=== PATIENT | male | born 1970 | race Caucasian/White ===

== ENCOUNTER 2017-02-10 10:15 | Emergency (ER) | payer MEDICAID ==
[~2017-02-10] VITALS: Ht 180.3 cm; Wt 85.0 kg
[~2017-02-10 10:15] MED LIST: AMLO5TAB4 PO; BACL-19 PO; CLINDAMYCIN; CLON0.1T12 PO; ERGO500017 PO; HYDR25TA6 PO; IRBE300T16 PO; LACT10SO5 PO; LORA-446 PO; METO25TA35 PO; METO25TA91 PO; MULT-658 PO; OMEP20TA62 PO; PITA1TAB2; RISP2TAB35 PO; [UNRECOGNIZED DRUG - OTHER]
[2017-02-10] MEDS ORDERED: METO25TA35 PO (10:27)
[2017-02-10] MEDS ORDERED: DIAZ10TA PO (10:40)
[2017-02-10] MEDS ORDERED: TRAZ50TA18 PO (10:40)
[2017-02-10] MEDS ORDERED: HYDR50CA PO (10:40)
[2017-02-10] MEDS ORDERED: DULO30CA2 PO (10:40)
[2017-02-10] MEDS ORDERED: DULO60CA7 PO (10:40)
[2017-02-10] MEDS ORDERED: FAMOTIDINE 20 MG/2 ML ONE (10:51)
[2017-02-10] MEDS ORDERED: ONDANSETRON 2MG/ML, 2ML ONE (10:51)
[2017-02-10] MEDS ORDERED: CHLORDIAZEPOXIDE 25 MG CAPSULE PO ONE (11:00)
[2017-02-10] MEDS ORDERED: SODIUM CHLORIDE FLUSH 10ML SYR IVF ONE (11:00)
[2017-02-10] MEDS ORDERED: ONDANSETRON 2MG/ML, 2ML IVPush ONE (11:00)
[2017-02-10] MEDS ORDERED: FAMOTIDINE 20 MG/2 ML IVPush ONE (11:00)
[2017-02-10] MEDS ORDERED: MAGNESIUM SULFATE 1 GM, THIAMINE 100 MG, FOLIC ACID 1 MG, MVI ADULT 10 ML in SODIUM CHL... IV ONE (11:00)
[2017-02-10] MEDS ORDERED: SODIUM CHLORIDE 0.9% 1,000ML IVBOLUS ONE (11:00)
[2017-02-10 11:21] LABS: ASPARTATE AMINO TRANSFERASE 34 U/L (15-37); BLOOD UREA NITROGEN 11 mg/dL (7-18)
[2017-02-10] MEDS ORDERED: HYDROcodone/APAP 5/325 TABLET ONE (12:36)
[2017-02-10] MEDS ORDERED: POTASSIUM CHLORIDE 20 MEQ TAB.ER.PRT PO ONE (13:00)
[2017-02-10] MEDS ORDERED: HYDROcodone/APAP 5/325 TABLET PO ONE (13:00)
[2017-02-10] MEDS ORDERED: POTASSIUM CHLORIDE 20 MEQ TAB.ER.PRT ONE (13:02)
[2017-02-10 15:16] VITALS: BP 152/103
== END 2017-02-10 15:21 | disposition home or self-care (01) ==
LOC: ED 12:13
DX: F10.239 Alcohol dependence with withdrawal, unspecified (principal)
CPT/HCPCS: 36415; 80053; 85025; 93005; 96361; 96365; 96366; 96375; 99285; J2405; J3411; J3475; J7030; S0028

== ENCOUNTER 2017-04-06 02:47 | Inpatient (IN) | payer MEDICAID ==
[~2017-04-06] VITALS: Ht 180.3 cm; Wt 91.8 kg
[~2017-04-06 02:47] MED LIST changes: +DIAZ10TA PO; +DULO30CA2 PO; +DULO60CA7 PO; +HYDR50CA PO; +TRAZ50TA18 PO
[2017-04-06] MEDS ORDERED: THIAMINE 100 MG/ML, 2ML ONE (02:51)
[2017-04-06] MEDS ORDERED: LORazepam 2 MG/ML, 1ML ONE ×4 (02:51→08:32)
[2017-04-06] MEDS ORDERED: SERT25TA PO (02:54)
[2017-04-06] MEDS ORDERED: THIAMINE 100 MG in SODIUM CHLORIDE 0.9% 50 ML IVPB ONE (03:00)
[2017-04-06] MEDS ORDERED: SODIUM CHLORIDE 0.9% 1,000ML IVBOLUS ONE ×2 (03:00→04:00)
[2017-04-06] MEDS ORDERED: LORazepam 2 MG/ML, 1ML IVPush ONE ×2 (03:00→04:00)
[2017-04-06 03:19] LABS: ASPARTATE AMINO TRANSFERASE 93 U/L (15-37); BLOOD UREA NITROGEN 34 mg/dL (7-18)
[2017-04-06] MEDS ORDERED: POTASSIUM CHLORIDE 20 MEQ TAB.ER.PRT ONE (03:44)
[2017-04-06] MEDS ORDERED: KETOROLAC 30 MG/1 ML ONE (03:44)
[2017-04-06] MEDS ORDERED: POTASSIUM CHLORIDE 20 MEQ TAB.ER.PRT PO ONE (04:00)
[2017-04-06] MEDS ORDERED: KETOROLAC 30 MG/1 ML IVPush ONE (04:00)
[2017-04-06] MEDS ORDERED: POTASSIUM CHLORIDE 20 MEQ in SODIUM CHLORIDE 0.9% 1,000 ML IV ONE (04:29)
[2017-04-06] MEDS ORDERED: ONDANSETRON 2MG/ML, 2ML IVPush PRN (04:30)
[2017-04-06] MEDS ORDERED: LORazepam 2 MG/ML, 1ML IV PRN ×2 (06:00)
[2017-04-06] MEDS ORDERED: PROMETHAZINE 25 MG/ML, 1ML IM PRN (06:00)
[2017-04-06] MEDS ORDERED: CHLORDIAZEPOXIDE 25 MG CAPSULE PO PRN (06:00)
[2017-04-06] MEDS: LORazepam 2 MG/ML, 1ML IV PRN ×4 (06:22→21:40)
[2017-04-06] MEDS: HEPARIN 5,000 UNITS/ML, 1ML SQ SCH ×3 (07:30→21:49)
[2017-04-06] MEDS ORDERED: MAGNESIUM SULFATE PMX 2GM/50ML 50 ML IV ONE (07:30)
[2017-04-06] MEDS: THIAMINE 100 MG, MVI ADULT 10 ML, FOLIC ACID 1 MG in D5%-0.9% NACL 1,000 ML IV SCH (07:36)
[2017-04-06] MEDS: METOPROLOL TARTRATE 25 MG TABLET PO SCH (09:00)
[2017-04-06] MEDS: SERTRALINE 50MG TABLET PO SCH (09:00)
[2017-04-06 10:42] VITALS: BP 126/76
[2017-04-06] MEDS ORDERED: THIAMINE 200 MG in SODIUM CHLORIDE 0.9% 50 ML IV ONE (12:00)
[2017-04-06] MEDS: SODIUM CHLORIDE 0.9% 1,000 ML IV SCH ×2 (13:37→15:50)
[2017-04-06 14:30] VITALS: BP 140/89
[2017-04-06 18:52] VITALS: BP 137/89
[2017-04-07] MEDS: SODIUM CHLORIDE 0.9% 1,000 ML IV SCH (01:43)
[2017-04-07 01:50] VITALS: BP 135/82
[2017-04-07 05:54] LABS: BLOOD UREA NITROGEN 15 mg/dL (7-18)
[2017-04-07 05:59] LABS: ASPARTATE AMINO TRANSFERASE 77 U/L (15-37)
[2017-04-07] MEDS: HEPARIN 5,000 UNITS/ML, 1ML SQ SCH ×3 (06:04→21:42)
[2017-04-07] MEDS ORDERED: POTASSIUM CHLORIDE 20 MEQ TAB.ER.PRT PO ONE (08:00)
[2017-04-07 08:51] VITALS: BP 154/97
[2017-04-07] MEDS: SERTRALINE 50MG TABLET PO SCH (09:01)
[2017-04-07] MEDS: METOPROLOL TARTRATE 25 MG TABLET PO SCH (09:01)
[2017-04-07] MEDS: LORazepam 2 MG/ML, 1ML IV PRN ×2 (09:02→18:23)
[2017-04-07 13:37] VITALS: BP 144/87
[2017-04-07 19:20] VITALS: BP 143/92
[2017-04-08 02:12] VITALS: BP 143/97
[2017-04-08] MEDS: ONDANSETRON 2MG/ML, 2ML IVPush PRN (02:41)
[2017-04-08] MEDS: LORazepam 2 MG/ML, 1ML IV PRN ×5 (02:41→21:42)
[2017-04-08 05:02] LABS: ASPARTATE AMINO TRANSFERASE 59 U/L (15-37); BLOOD UREA NITROGEN 14 mg/dL (7-18)
[2017-04-08] MEDS: THIAMINE 100 MG, MVI ADULT 10 ML, FOLIC ACID 1 MG in D5%-0.9% NACL 1,000 ML IV SCH (06:23)
[2017-04-08] MEDS: HEPARIN 5,000 UNITS/ML, 1ML SQ SCH ×3 (06:23→23:17)
[2017-04-08 07:11] VITALS: BP 136/91
[2017-04-08] MEDS: SERTRALINE 50MG TABLET PO SCH (08:01)
[2017-04-08] MEDS: METOPROLOL TARTRATE 25 MG TABLET PO SCH (08:01)
[2017-04-08] MEDS ORDERED: POTASSIUM CHLORIDE 20 MEQ TAB.ER.PRT PO ONE (10:30)
[2017-04-08] MEDS ORDERED: CHLORDIAZEPOXIDE 25 MG CAPSULE PO PRN (10:30)
[2017-04-08] MEDS: CHLORDIAZEPOXIDE 5 MG CAPSULE PO PRN (12:39)
[2017-04-08 15:36] VITALS: BP 126/79
[2017-04-08 19:38] VITALS: BP 151/88
[2017-04-08] MEDS ORDERED: KETOROLAC 30 MG/1 ML IVPush ONE (23:30)
[2017-04-09] VITALS (12 sets, daily range): BP systolic 113–157; BP diastolic 79–97
[2017-04-09 05:24] LABS: BLOOD UREA NITROGEN 13 mg/dL (7-18)
[2017-04-09] MEDS: THIAMINE 100 MG, MVI ADULT 10 ML, FOLIC ACID 1 MG in D5%-0.9% NACL 1,000 ML IV SCH (06:12)
[2017-04-09] MEDS: LORazepam 2 MG/ML, 1ML IV PRN ×4 (06:12→22:24)
[2017-04-09] MEDS: ONDANSETRON 2MG/ML, 2ML IVPush PRN (06:39)
[2017-04-09] MEDS: HEPARIN 5,000 UNITS/ML, 1ML SQ SCH ×2 (08:17→16:28)
[2017-04-09] MEDS: METOPROLOL TARTRATE 25 MG TABLET PO SCH (08:17)
[2017-04-09] MEDS: SERTRALINE 50MG TABLET PO SCH (08:17)
[2017-04-09] MEDS: KETOROLAC 30 MG/1 ML IVPush PRN (16:29)
[2017-04-09] MEDS: CHLORDIAZEPOXIDE 5 MG CAPSULE PO PRN (20:50)
[2017-04-10] VITALS (9 sets, daily range): BP systolic 127–165; BP diastolic 86–113
[2017-04-10] MEDS: HEPARIN 5,000 UNITS/ML, 1ML SQ SCH ×3 (01:13→17:22)
[2017-04-10] MEDS: LORazepam 2 MG/ML, 1ML IV PRN ×4 (05:15→20:33)
[2017-04-10] MEDS: THIAMINE 100 MG, MVI ADULT 10 ML, FOLIC ACID 1 MG in D5%-0.9% NACL 1,000 ML IV SCH (05:19)
[2017-04-10] MEDS: SERTRALINE 50MG TABLET PO SCH (09:07)
[2017-04-10] MEDS: METOPROLOL TARTRATE 25 MG TABLET PO SCH (09:07)
[2017-04-10] MEDS: KETOROLAC 30 MG/1 ML IVPush PRN (20:58)
[2017-04-11 01:26] VITALS: BP_SYST 150; BP_SYST 159; BP_DIAS 102; BP_DIAS 105
[2017-04-11] MEDS: HEPARIN 5,000 UNITS/ML, 1ML SQ SCH ×3 (01:32→18:46)
[2017-04-11] MEDS: LORazepam 2 MG/ML, 1ML IV PRN ×6 (01:32→22:10)
[2017-04-11 08:49] VITALS: BP 128/88
[2017-04-11] MEDS: METOPROLOL TARTRATE 25 MG TABLET PO SCH (10:13)
[2017-04-11] MEDS: SERTRALINE 50MG TABLET PO SCH (10:14)
[2017-04-11] MEDS: KETOROLAC 30 MG/1 ML IVPush PRN ×2 (10:18→22:01)
[2017-04-11 14:10] VITALS: BP 127/95
[2017-04-11 19:49] VITALS: BP 134/88
[2017-04-12] MEDS: HEPARIN 5,000 UNITS/ML, 1ML SQ SCH ×3 (01:31→18:37)
[2017-04-12 01:38] VITALS: BP 128/86
[2017-04-12] MEDS: LORazepam 2 MG/ML, 1ML IV PRN ×4 (02:54→20:47)
[2017-04-12 06:59] VITALS: BP 121/85
[2017-04-12] MEDS ORDERED: MAGN400T26 PO (07:39)
[2017-04-12] MEDS ORDERED: METO25TA35 PO (07:39)
[2017-04-12] MEDS ORDERED: FOLI-17 PO (07:39)
[2017-04-12] MEDS ORDERED: THIA100T10 PO (07:39)
[2017-04-12] MEDS ORDERED: MULT-412 PO (07:39)
[2017-04-12 10:15] VITALS: BP 137/93
[2017-04-12] MEDS: KETOROLAC 30 MG/1 ML IVPush PRN (10:19)
[2017-04-12] MEDS: OMEPRAZOLE 20 MG CAPSULE.DR PO SCH (10:20)
[2017-04-12] MEDS: SERTRALINE 50MG TABLET PO SCH (10:20)
[2017-04-12] MEDS: METOPROLOL TARTRATE 25 MG TABLET PO SCH ×2 (10:20→20:42)
[2017-04-12 12:29] VITALS: BP 131/90
[2017-04-12] MEDS: HYDROcodone/APAP 5/325 TABLET PO PRN ×2 (15:06→20:43)
[2017-04-12 19:30] VITALS: BP 151/90
[2017-04-12] MEDS ORDERED: LISINOPRIL 10 MG TABLET PO SCH (21:00)
[2017-04-13 02:11] VITALS: BP 93/64
[2017-04-13] MEDS: LORazepam 2 MG/ML, 1ML IV PRN ×4 (03:17→20:39)
[2017-04-13] MEDS: HEPARIN 5,000 UNITS/ML, 1ML SQ SCH ×3 (03:32→18:12)
[2017-04-13] MEDS: HYDROcodone/APAP 5/325 TABLET PO PRN ×4 (03:32→20:32)
[2017-04-13 07:42] VITALS: BP 100/62
[2017-04-13] MEDS: METOPROLOL TARTRATE 25 MG TABLET PO SCH ×2 (08:40→20:32)
[2017-04-13] MEDS: OMEPRAZOLE 20 MG CAPSULE.DR PO SCH (08:42)
[2017-04-13] MEDS: SERTRALINE 50MG TABLET PO SCH (08:42)
[2017-04-13] MEDS: LISINOPRIL 5 MG TABLET PO SCH ×2 (08:46→21:00)
[2017-04-13 13:28] VITALS: BP 102/69
[2017-04-13 17:39] VITALS: BP 121/86
[2017-04-13 20:10] VITALS: BP 130/84
[2017-04-14] MEDS: HEPARIN 5,000 UNITS/ML, 1ML SQ SCH ×2 (02:56→10:00)
[2017-04-14 02:57] VITALS: BP 95/56
[2017-04-14] MEDS: HYDROcodone/APAP 5/325 TABLET PO PRN ×2 (03:00→08:51)
[2017-04-14] MEDS: LORazepam 2 MG/ML, 1ML IV PRN (03:09)
[2017-04-14] MEDS: METOPROLOL TARTRATE 25 MG TABLET PO SCH (08:46)
[2017-04-14] MEDS: OMEPRAZOLE 20 MG CAPSULE.DR PO SCH (08:46)
[2017-04-14 08:51] VITALS: BP 116/77
[2017-04-14] MEDS: SERTRALINE 50MG TABLET PO SCH (08:51)
[2017-04-14] MEDS: LISINOPRIL 5 MG TABLET PO SCH (09:00)
[2017-04-14] MEDS ORDERED: HYDR-3240 PO (11:23)
[2017-04-14] MEDS ORDERED: OMEP-110 PO (11:23)
== END 2017-04-14 14:50 | disposition home or self-care (01) | DRG 896 ==
LOC: ED 03:17 → EDIP 04:29 → 4WST 11:06
PROVIDERS: ADMIT Internal Medicine; ATTEND Internal Medicine
DX: F10.231 Alcohol dependence with withdrawal delirium (principal); N17.0 Acute kidney failure with tubular necrosis; E87.1 Hypo-osmolality and hyponatremia; F23 Brief psychotic disorder; E87.6 Hypokalemia; I10 Essential (primary) hypertension; K21.9 Gastro-esophageal reflux disease without esophagitis; F31.9 Bipolar disorder, unspecified; Z81.1 Family history of alcohol abuse and dependence
CPT/HCPCS: 36415; 80048; 80053; 80307; 83735; 84100; 85025; 96365; 96375; 96376; J1644; J1885; J2405; J2550; J3411; J3480; J7042; J2060; J3475; J7030

== ENCOUNTER 2017-06-28 12:57 | Inpatient (IN) | payer MEDICAID ==
[~2017-06-28] VITALS: Ht 180.3 cm; Wt 96.7 kg
[~2017-06-28 12:57] MED LIST changes: +FOLI-17 PO; +HYDR-3240 PO; +MAGN400T26 PO; +MULT-412 PO; +OMEP-110 PO; +SERT25TA PO; +THIA100T10 PO
[2017-06-28] MEDS ORDERED: LORazepam 2 MG/ML, 1ML ONE (13:02)
[2017-06-28] MEDS ORDERED: LORazepam 2 MG/ML, 1ML IVPush ONE ×2 (13:30→21:00)
[2017-06-28] MEDS ORDERED: GABAPENTIN 300 MG CAPSULE PO ONE (13:30)
[2017-06-28] MEDS ORDERED: THIAMINE 100 MG in SODIUM CHLORIDE 0.9% 50 ML IVPB ONE (13:30)
[2017-06-28] MEDS ORDERED: SODIUM CHLORIDE FLUSH 10ML SYR IVF ONE (13:30)
[2017-06-28] MEDS ORDERED: SODIUM CHLORIDE 0.9% 1,000ML IVBOLUS ONE (13:30)
[2017-06-28 13:42] LABS: HEMATOCRIT 41.3 % (39.2-51.8); HEMOGLOBIN 14.1 g/dL (13.7-18.0); WHITE BLOOD COUNT 9.2 x10^3/uL (3.4-10)
[2017-06-28 13:50] LABS: ASPARTATE AMINO TRANSFERASE 68 U/L (15-37); BLOOD UREA NITROGEN 26 mg/dL (7-18)
[2017-06-28] MEDS ORDERED: MAGNESIUM SULFATE PMX 4GM/100M 100 ML IV ONE ×2 (14:00→15:30)
[2017-06-28] MEDS ORDERED: POTASSIUM CHLORIDE 20 MEQ TAB.ER.PRT PO ONE ×2 (14:00→19:30)
[2017-06-28] MEDS ORDERED: POTASSIUM CHLORIDE 20 MEQ TAB.ER.PRT ONE (14:24)
[2017-06-28] MEDS ORDERED: POTASSIUM CHLORIDE 20 MEQ TAB.ER.PRT PO SCH (15:30)
[2017-06-28] MEDS ORDERED: morphine SULFATE 10 MG/ML, 1ML IVPush PRN (15:30)
[2017-06-28] MEDS ORDERED: hydrALAzine 20 MG/ML, 1ML IVPush PRN (15:30)
[2017-06-28] MEDS ORDERED: ACETAMINOPHEN 325 MG TABLET PO PRN (15:30)
[2017-06-28] MEDS ORDERED: LORazepam 2 MG/ML, 1ML IVPush PRN (15:30)
[2017-06-28] MEDS: NS + 40MEQ KCL 1,000 ML IV SCH ×2 (15:46→20:08)
[2017-06-28] MEDS: SODIUM CHLORIDE 0.9% 1,000 ML IV SCH ×2 (15:47→22:12)
[2017-06-28] MEDS ORDERED: TRAZODONE 50MG TABLET PO PRN (16:00)
[2017-06-28 17:02] VITALS: BP 150/103
[2017-06-28] MEDS: OXYcodone IR 5MG TABLET PO PRN ×2 (17:48→20:10)
[2017-06-28 18:44] VITALS: BP 145/90
[2017-06-28] MEDS: METOPROLOL TARTRATE 25 MG TABLET PO SCH (20:10)
[2017-06-28] MEDS: MAGNESIUM OXIDE 400 MG TABLET PO SCH (20:10)
[2017-06-29 00:19] VITALS: BP 136/94
[2017-06-29] MEDS: LORazepam 2 MG/ML, 1ML IVPush PRN ×6 (00:20→23:55)
[2017-06-29 04:52] VITALS: BP 124/81
[2017-06-29] MEDS: SODIUM CHLORIDE 0.9% 1,000 ML IV SCH ×3 (04:52→20:27)
[2017-06-29 05:27] LABS: HEMATOCRIT 37.6 % (39.2-51.8); HEMOGLOBIN 12.7 g/dL (13.7-18.0)
[2017-06-29 05:28] LABS: BLOOD UREA NITROGEN 20 mg/dL (7-18)
[2017-06-29 05:33] LABS: ASPARTATE AMINO TRANSFERASE 58 U/L (15-37)
[2017-06-29] MEDS: PANTOPROZOLE 40MG TABLET PO SCH (07:58)
[2017-06-29] MEDS: MAGNESIUM OXIDE 400 MG TABLET PO SCH ×2 (08:00→20:41)
[2017-06-29 08:07] VITALS: BP 130/90
[2017-06-29] MEDS: OXYcodone IR 5MG TABLET PO PRN ×3 (08:50→20:44)
[2017-06-29] MEDS: MULTIVITAMIN 1 TABLET PO SCH (08:50)
[2017-06-29] MEDS: THIAMINE 100MG TABLET PO SCH (08:51)
[2017-06-29] MEDS: METOPROLOL TARTRATE 25 MG TABLET PO SCH ×2 (08:51→20:44)
[2017-06-29] MEDS: SERTRALINE 50MG TABLET PO SCH (08:52)
[2017-06-29] MEDS: FOLIC ACID 1 MG TABLET PO SCH (08:52)
[2017-06-29] MEDS: OMEPRAZOLE 20 MG CAPSULE.DR PO SCH (08:52)
[2017-06-29 14:15] VITALS: BP 130/87
[2017-06-29 18:35] VITALS: BP 150/102
[2017-06-30] VITALS (7 sets, daily range): BP systolic 148–163; BP diastolic 90–116
[2017-06-30] MEDS: OXYcodone IR 5MG TABLET PO PRN ×5 (02:06→21:25)
[2017-06-30] MEDS: SODIUM CHLORIDE 0.9% 1,000 ML IV SCH ×4 (02:40→22:38)
[2017-06-30] MEDS: LORazepam 2 MG/ML, 1ML IVPush PRN ×5 (02:40→20:05)
[2017-06-30] MEDS: ONDANSETRON 2MG/ML, 2ML IVPush PRN (06:47)
[2017-06-30] MEDS: THIAMINE 100MG TABLET PO SCH (08:30)
[2017-06-30] MEDS: OMEPRAZOLE 20 MG CAPSULE.DR PO SCH (08:30)
[2017-06-30] MEDS: FOLIC ACID 1 MG TABLET PO SCH (08:30)
[2017-06-30] MEDS: MULTIVITAMIN 1 TABLET PO SCH (08:30)
[2017-06-30] MEDS: PANTOPROZOLE 40MG TABLET PO SCH (08:30)
[2017-06-30] MEDS: SERTRALINE 50MG TABLET PO SCH (08:30)
[2017-06-30] MEDS: MAGNESIUM OXIDE 400 MG TABLET PO SCH (09:00)
[2017-06-30 09:42] LABS: BLOOD UREA NITROGEN 13 mg/dL (7-18)
[2017-06-30] MEDS: METOPROLOL TARTRATE 50 MG TABLET PO SCH ×2 (10:12→21:17)
[2017-06-30] MEDS: HALOPERIDOL 5 MG/ML IM PRN ×2 (17:06→22:34)
[2017-07-01 00:52] VITALS: BP 144/92
[2017-07-01] MEDS: LORazepam 2 MG/ML, 1ML IVPush PRN ×3 (00:53→08:18)
[2017-07-01] MEDS: SODIUM CHLORIDE 0.9% 1,000 ML IV SCH ×3 (04:30→18:02)
[2017-07-01 05:49] LABS: BLOOD UREA NITROGEN 11 mg/dL (7-18)
[2017-07-01] MEDS: OMEPRAZOLE 20 MG CAPSULE.DR PO SCH (08:18)
[2017-07-01] MEDS: THIAMINE 100MG TABLET PO SCH (08:18)
[2017-07-01] MEDS: METOPROLOL TARTRATE 50 MG TABLET PO SCH ×2 (08:18→20:09)
[2017-07-01] MEDS: MULTIVITAMIN 1 TABLET PO SCH (08:18)
[2017-07-01] MEDS: PANTOPROZOLE 40MG TABLET PO SCH (08:18)
[2017-07-01] MEDS: SERTRALINE 50MG TABLET PO SCH (08:18)
[2017-07-01 08:23] VITALS: BP 135/90
[2017-07-01] MEDS: FOLIC ACID 1 MG TABLET PO SCH (09:00)
[2017-07-01] MEDS: OXYcodone IR 5MG TABLET PO PRN ×2 (11:19→18:02)
[2017-07-01] MEDS ORDERED: OLANZAPINE 5 MG TABLET PO SCH (12:30)
[2017-07-01] MEDS: LORazepam 1MG TABLET PO PRN ×2 (14:27→23:16)
[2017-07-01] MEDS ORDERED: OLANZAPINE 5 MG TABLET PO ONE (16:00)
[2017-07-01 16:45] VITALS: BP 143/99
[2017-07-01] MEDS ORDERED: hydrALAzine 20 MG/ML, 1ML IVPush PRN (19:00)
[2017-07-01 20:03] VITALS: BP 159/96
[2017-07-01] MEDS: ACETAMINOPHEN 325 MG TABLET PO PRN (20:09)
[2017-07-02 03:00] VITALS: BP 146/94
[2017-07-02] MEDS: OXYcodone IR 5MG TABLET PO PRN ×4 (03:58→23:47)
[2017-07-02 08:00] VITALS: BP 132/82
[2017-07-02] MEDS: OLANZAPINE 2.5 MG TABLET PO SCH (08:27)
[2017-07-02] MEDS: MULTIVITAMIN 1 TABLET PO SCH (08:28)
[2017-07-02] MEDS: PANTOPROZOLE 40MG TABLET PO SCH (08:28)
[2017-07-02] MEDS: METOPROLOL TARTRATE 50 MG TABLET PO SCH (08:28)
[2017-07-02] MEDS: THIAMINE 100MG TABLET PO SCH (08:28)
[2017-07-02] MEDS: OMEPRAZOLE 20 MG CAPSULE.DR PO SCH (08:28)
[2017-07-02] MEDS: FOLIC ACID 1 MG TABLET PO SCH (08:28)
[2017-07-02] MEDS: ACETAMINOPHEN 325 MG TABLET PO PRN (08:30)
[2017-07-02] MEDS ORDERED: FLUOXETINE 20 MG CAPSULE PO SCH ×2 (09:00→20:00)
[2017-07-02] MEDS: FLUOXETINE 10 MG CAP PO SCH (09:57)
[2017-07-02 15:00] VITALS: BP 138/95
[2017-07-02 19:53] VITALS: BP 133/87
[2017-07-02] MEDS ORDERED: OLANZAPINE 2.5 MG TABLET PO SCH (20:00)
[2017-07-02] MEDS: METOPROLOL TARTRATE 100 MG TABLET PO SCH (20:04)
[2017-07-03 04:57] VITALS: BP 128/82
[2017-07-03] MEDS: LORazepam 1MG TABLET PO PRN ×2 (05:05→16:08)
[2017-07-03] MEDS: OXYcodone IR 5MG TABLET PO PRN ×4 (05:07→18:43)
[2017-07-03 08:09] VITALS: BP 152/104
[2017-07-03] MEDS: OLANZAPINE 2.5 MG TABLET PO SCH (08:31)
[2017-07-03] MEDS: OMEPRAZOLE 20 MG CAPSULE.DR PO SCH (08:32)
[2017-07-03] MEDS: PANTOPROZOLE 40MG TABLET PO SCH (08:32)
[2017-07-03] MEDS: FOLIC ACID 1 MG TABLET PO SCH (08:32)
[2017-07-03] MEDS: METOPROLOL TARTRATE 100 MG TABLET PO SCH ×2 (08:32→21:36)
[2017-07-03] MEDS: MULTIVITAMIN 1 TABLET PO SCH (08:32)
[2017-07-03] MEDS: THIAMINE 100MG TABLET PO SCH (08:32)
[2017-07-03] MEDS: FLUOXETINE 10 MG CAP PO SCH (08:33)
[2017-07-03] MEDS ORDERED: LISINOPRIL 20 MG TABLET PO SCH (10:00)
[2017-07-03 12:44] VITALS: BP 123/87
[2017-07-03] MEDS: OLANZAPINE 5 MG TABLET PO SCH ×2 (13:01→21:35)
[2017-07-03] MEDS: HALOPERIDOL 5 MG/ML IM PRN (18:43)
[2017-07-03] MEDS ORDERED: LORazepam 1MG TABLET PO ONE (19:00)
[2017-07-03 20:22] VITALS: BP 138/88
[2017-07-04 05:00] VITALS: BP 112/69
[2017-07-04] MEDS: OXYcodone IR 5MG TABLET PO PRN ×4 (05:12→20:59)
[2017-07-04] MEDS: PANTOPROZOLE 40MG TABLET PO SCH (07:46)
[2017-07-04] MEDS: OMEPRAZOLE 20 MG CAPSULE.DR PO SCH (07:46)
[2017-07-04] MEDS: THIAMINE 100MG TABLET PO SCH (08:22)
[2017-07-04] MEDS: FLUOXETINE 10 MG CAP PO SCH (08:22)
[2017-07-04] MEDS: FOLIC ACID 1 MG TABLET PO SCH (08:22)
[2017-07-04] MEDS: OLANZAPINE 5 MG TABLET PO SCH ×2 (08:22→20:59)
[2017-07-04] MEDS: LORazepam 1MG TABLET PO PRN ×3 (08:22→20:59)
[2017-07-04] MEDS: MULTIVITAMIN 1 TABLET PO SCH (08:22)
[2017-07-04] MEDS: METOPROLOL TARTRATE 100 MG TABLET PO SCH ×2 (08:25→20:58)
[2017-07-04 08:49] VITALS: BP 90/54
[2017-07-04] MEDS: ACETAMINOPHEN 325 MG TABLET PO PRN (12:06)
[2017-07-04 13:14] VITALS: BP 126/78
[2017-07-04] MEDS ORDERED: OLANZAPINE 5 MG TABLET PO PRN (18:00)
[2017-07-04] MEDS ORDERED: OLANZAPINE 10 MG INJ IM PRN (18:30)
[2017-07-04 18:58] VITALS: BP 109/71
[2017-07-05 01:48] VITALS: BP 95/60
[2017-07-05] MEDS: LORazepam 1MG TABLET PO PRN ×4 (01:52→23:15)
[2017-07-05] MEDS: OXYcodone IR 5MG TABLET PO PRN ×5 (01:52→23:15)
[2017-07-05] MEDS: OMEPRAZOLE 20 MG CAPSULE.DR PO SCH (07:30)
[2017-07-05] MEDS: PANTOPROZOLE 40MG TABLET PO SCH (07:50)
[2017-07-05 09:00] VITALS: BP 103/56
[2017-07-05] MEDS: MULTIVITAMIN 1 TABLET PO SCH (09:44)
[2017-07-05] MEDS: THIAMINE 100MG TABLET PO SCH (09:44)
[2017-07-05] MEDS: FOLIC ACID 1 MG TABLET PO SCH (09:44)
[2017-07-05] MEDS: OLANZAPINE 5 MG TABLET PO SCH (09:44)
[2017-07-05] MEDS: METOPROLOL TARTRATE 100 MG TABLET PO SCH ×2 (09:45→23:23)
[2017-07-05 13:00] VITALS: BP 95/65
[2017-07-05] MEDS: OXCARBAZEPINE 150 MG TABLET PO SCH ×2 (13:19→23:04)
[2017-07-05 19:48] VITALS: BP 100/66
[2017-07-05] MEDS ORDERED: OLANZAPINE 10 MG TABLET PO SCH (21:00)
[2017-07-05] MEDS: ACETAMINOPHEN 325 MG TABLET PO PRN (23:15)
[2017-07-05 23:22] VITALS: BP 132/87
[2017-07-06 00:08] VITALS: BP 124/81
[2017-07-06] MEDS: OMEPRAZOLE 20 MG CAPSULE.DR PO SCH (07:30)
[2017-07-06 07:40] VITALS: BP 104/72
[2017-07-06] MEDS: METOPROLOL TARTRATE 100 MG TABLET PO SCH (09:00)
[2017-07-06] MEDS: THIAMINE 100MG TABLET PO SCH (10:18)
[2017-07-06] MEDS: FOLIC ACID 1 MG TABLET PO SCH (10:18)
[2017-07-06] MEDS: MULTIVITAMIN 1 TABLET PO SCH (10:18)
[2017-07-06] MEDS: OXCARBAZEPINE 150 MG TABLET PO SCH ×2 (10:18→21:39)
[2017-07-06] MEDS: PANTOPROZOLE 40MG TABLET PO SCH (10:18)
[2017-07-06] MEDS: OXYcodone IR 5MG TABLET PO PRN ×3 (10:27→21:40)
[2017-07-06 12:50] VITALS: BP 107/71
[2017-07-06] MEDS ORDERED: RISPERIDONE 1 MG TABLET PO PRN (13:30)
[2017-07-06] MEDS: LORazepam 1MG TABLET PO PRN (16:44)
[2017-07-06] MEDS: ACETAMINOPHEN 325 MG TABLET PO PRN (18:34)
[2017-07-06 19:56] VITALS: BP 128/76
[2017-07-06] MEDS: METOPROLOL TARTRATE 50 MG TABLET PO SCH (21:39)
[2017-07-06] MEDS: RISPERIDONE 2 MG TABLET PO SCH (21:39)
[2017-07-07 01:02] VITALS: BP 111/75
[2017-07-07] MEDS: OXYcodone IR 5MG TABLET PO PRN ×4 (04:13→22:49)
[2017-07-07] MEDS: LORazepam 1MG TABLET PO PRN ×3 (04:14→21:45)
[2017-07-07 07:26] VITALS: BP 138/94
[2017-07-07] MEDS: MULTIVITAMIN 1 TABLET PO SCH (08:26)
[2017-07-07] MEDS: THIAMINE 100MG TABLET PO SCH (08:26)
[2017-07-07] MEDS: METOPROLOL TARTRATE 50 MG TABLET PO SCH ×2 (08:27→21:41)
[2017-07-07] MEDS: OMEPRAZOLE 20 MG CAPSULE.DR PO SCH (08:28)
[2017-07-07] MEDS: FOLIC ACID 1 MG TABLET PO SCH (08:28)
[2017-07-07] MEDS: OXCARBAZEPINE 150 MG TABLET PO SCH ×2 (08:30→21:42)
[2017-07-07 13:32] VITALS: BP 101/67
[2017-07-07] MEDS: ACETAMINOPHEN 325 MG TABLET PO PRN ×2 (16:57→21:45)
[2017-07-07 20:17] VITALS: BP 121/69
[2017-07-07] MEDS: ONDANSETRON 2MG/ML, 2ML IVPush PRN (21:34)
[2017-07-07] MEDS: RISPERIDONE 2 MG TABLET PO SCH (21:42)
[2017-07-07 23:30] LABS: OCCBLD OBC PASS
[2017-07-08] MEDS ORDERED: LOPERAMIDE 2 MG CAPSULE PO PRN (00:30)
[2017-07-08 02:54] VITALS: BP 102/64
[2017-07-08] MEDS: LORazepam 1MG TABLET PO PRN ×3 (02:59→20:59)
[2017-07-08] MEDS: OXYcodone IR 5MG TABLET PO PRN ×5 (02:59→20:58)
[2017-07-08 05:55] LABS: HEMATOCRIT 35.5 % (39.2-51.8); WHITE BLOOD COUNT 4.5 x10^3/uL (3.4-10)
[2017-07-08 06:17] LABS: ASPARTATE AMINO TRANSFERASE 79 U/L (15-37); BLOOD UREA NITROGEN 17 mg/dL (7-18)
[2017-07-08 06:37] LABS: DIFF TOTAL CELLS COUNTED 100 CELL DIFF
[2017-07-08 06:39] LABS: VERIFY COUNTS? YES
[2017-07-08 06:40] LABS: LARGE PLATELETS 1+
[2017-07-08 07:44] VITALS: BP 101/62
[2017-07-08] MEDS: FOLIC ACID 1 MG TABLET PO SCH (08:31)
[2017-07-08] MEDS: OMEPRAZOLE 20 MG CAPSULE.DR PO SCH (08:31)
[2017-07-08] MEDS: OXCARBAZEPINE 150 MG TABLET PO SCH ×2 (08:32→20:58)
[2017-07-08] MEDS: THIAMINE 100MG TABLET PO SCH (08:32)
[2017-07-08] MEDS: MULTIVITAMIN 1 TABLET PO SCH (08:32)
[2017-07-08] MEDS: METOPROLOL TARTRATE 50 MG TABLET PO SCH ×2 (08:32→20:59)
[2017-07-08] MEDS: ACETAMINOPHEN 325 MG TABLET PO PRN (08:33)
[2017-07-08 13:26] VITALS: BP 112/69
[2017-07-08] MEDS ORDERED: SODIUM CHLORIDE 0.9% 1,000 ML IV SCH (16:00)
[2017-07-08] MEDS ORDERED: SODIUM CHLORIDE 0.9% 1,000ML IVBOLUS ONE (16:00)
[2017-07-08 19:21] VITALS: BP 117/77
[2017-07-08] MEDS ORDERED: TRAZODONE 50MG TABLET PO PRN (19:30)
[2017-07-08] MEDS ORDERED: hydrALAzine 20 MG/ML, 1ML IVPush PRN (19:30)
[2017-07-08] MEDS ORDERED: ONDANSETRON 2MG/ML, 2ML IVPush PRN (19:30)
[2017-07-08] MEDS ORDERED: RISPERIDONE 1 MG TABLET PO PRN (19:30)
[2017-07-08] MEDS: RISPERIDONE 2 MG TABLET PO SCH (20:58)
[2017-07-09 02:43] VITALS: BP 103/68
[2017-07-09] MEDS: LORazepam 1MG TABLET PO PRN ×5 (05:19→23:22)
[2017-07-09] MEDS: OXYcodone IR 5MG TABLET PO PRN ×2 (05:19→10:30)
[2017-07-09 05:33] LABS: HEMOGLOBIN 11.6 g/dL (13.7-18.0)
[2017-07-09 05:39] LABS: BLOOD UREA NITROGEN 13 mg/dL (7-18)
[2017-07-09 05:52] LABS: DIFF TOTAL CELLS COUNTED 100 CELL DIFF
[2017-07-09 06:03] LABS: LARGE PLATELETS 1+; VERIFY COUNTS? YES
[2017-07-09 07:59] VITALS: BP 106/69
[2017-07-09] MEDS: METOPROLOL TARTRATE 50 MG TABLET PO SCH ×2 (08:15→20:04)
[2017-07-09] MEDS: OMEPRAZOLE 20 MG CAPSULE.DR PO SCH (08:21)
[2017-07-09] MEDS: FOLIC ACID 1 MG TABLET PO SCH (08:21)
[2017-07-09] MEDS: THIAMINE 100MG TABLET PO SCH (08:21)
[2017-07-09] MEDS: MULTIVITAMIN 1 TABLET PO SCH (08:21)
[2017-07-09] MEDS: OXCARBAZEPINE 150 MG TABLET PO SCH (08:22)
[2017-07-09 13:30] VITALS: BP 113/64
[2017-07-09] MEDS: RISPERIDONE 2 MG TABLET PO SCH (20:03)
[2017-07-09] MEDS: ACETAMINOPHEN 325 MG TABLET PO PRN (20:03)
[2017-07-09 20:51] VITALS: BP 141/91
[2017-07-09] MEDS ORDERED: OXCARBAZEPINE 150 MG TABLET PO SCH (21:00)
[2017-07-10 03:05] VITALS: BP 152/90
[2017-07-10 05:56] LABS: HEMATOCRIT 36.8 % (39.2-51.8); HEMOGLOBIN 12.3 g/dL (13.7-18.0); WHITE BLOOD COUNT 6.2 x10^3/uL (3.4-10)
[2017-07-10] MEDS: OMEPRAZOLE 20 MG CAPSULE.DR PO SCH (07:30)
[2017-07-10 07:49] VITALS: BP 132/83
[2017-07-10 08:56] LABS: BLOOD UREA NITROGEN 9 mg/dL (7-18)
[2017-07-10] MEDS: FOLIC ACID 1 MG TABLET PO SCH (08:59)
[2017-07-10] MEDS: THIAMINE 100MG TABLET PO SCH (08:59)
[2017-07-10] MEDS: MULTIVITAMIN 1 TABLET PO SCH (08:59)
[2017-07-10 09:29] LABS: HEMATOCRIT 37.2 % (39.2-51.8); HEMOGLOBIN 12.4 g/dL (13.7-18.0); WHITE BLOOD COUNT 4.7 x10^3/uL (3.4-10)
[2017-07-10] MEDS: METOPROLOL TARTRATE 50 MG TABLET PO SCH ×2 (09:58→23:18)
[2017-07-10] MEDS: LORazepam 1MG TABLET PO PRN ×3 (10:40→23:21)
[2017-07-10] MEDS: D5%-0.9% NACL 1,000 ML IV SCH (10:43)
[2017-07-10 13:22] VITALS: BP 129/88
[2017-07-10 19:40] VITALS: BP 144/102
[2017-07-10] MEDS ORDERED: GLYCOPYRROLATE 0.2MG/1ML, 5ML ONE (20:20)
[2017-07-10] MEDS ORDERED: ONDANSETRON 2MG/ML, 2ML ONE (20:20)
[2017-07-10] MEDS ORDERED: KETOROLAC 30 MG/1 ML ONE (20:20)
[2017-07-10] MEDS ORDERED: PROPOFOL 10 MG/ML, 20ML ONE (20:20)
[2017-07-10] MEDS ORDERED: MIDAZOLAM 1 MG/ML, 2ML ONE (20:20)
[2017-07-10] MEDS ORDERED: FENTANYL PF 100 MCG/2ML ONE (20:20)
[2017-07-10] MEDS ORDERED: CEFOTETAN 2 GM ONE (20:20)
[2017-07-10] MEDS ORDERED: DEXAMETHASONE 4 MG/ML, 1ML ONE (20:20)
[2017-07-10] MEDS ORDERED: ROCURONIUM 10 MG/ML ONE (20:20)
[2017-07-10] MEDS ORDERED: NEOSTIGMINE 1 MG/ML, 10ML ONE (20:20)
[2017-07-10] MEDS ORDERED: ACETAMINOPHEN 325 MG TABLET PO PRN (21:00)
[2017-07-10] MEDS ORDERED: EPHEDRINE 50 MG/ML, 1ML IVPush PRN (21:00)
[2017-07-10] MEDS ORDERED: hydrALAzine 20 MG/ML, 1ML IV PRN (21:00)
[2017-07-10] MEDS ORDERED: FENTANYL PF 100 MCG/2ML IV PRN (21:00)
[2017-07-10] MEDS ORDERED: ALBUTEROL SULFATE 2.5 MG/3 ML NPPB PRN (21:00)
[2017-07-10] MEDS ORDERED: OXYcodone 5 MG/5 ML ORAL.SOL UDC PO PRN (21:00)
[2017-07-10] MEDS ORDERED: METOPROLOL 1 MG/ML, 5ML IV PRN (21:00)
[2017-07-10] MEDS ORDERED: LABETALOL 5MG/ML, 20ML IV PRN (21:00)
[2017-07-10] MEDS ORDERED: MEPERIDINE/PF 25MG/0.5ML IVPush PRN (21:00)
[2017-07-10] MEDS ORDERED: ONDANSETRON 2MG/ML, 2ML IVPush PRN (21:00)
[2017-07-10] MEDS ORDERED: HYDROmorphone 1 MG/ML, 1ML IV PRN (21:00)
[2017-07-10] MEDS ORDERED: MEPERIDINE/PF 25MG/0.5ML ONE (21:15)
[2017-07-10] MEDS ORDERED: OXYcodone 5 MG/5 ML ORAL.SOL UDC ONE (21:15)
[2017-07-10] MEDS: RISPERIDONE 2 MG TABLET PO SCH (23:18)
[2017-07-10] MEDS: OXCARBAZEPINE 150 MG TABLET PO SCH (23:18)
[2017-07-10 23:47] VITALS: BP 128/88
[2017-07-11] MEDS: ACETAMINOPHEN 325 MG TABLET PO PRN (01:40)
[2017-07-11] MEDS: D5%-0.9% NACL 1,000 ML IV SCH (03:28)
[2017-07-11] MEDS: OXYcodone IR 5MG TABLET PO PRN ×3 (03:28→12:38)
[2017-07-11] MEDS: LORazepam 1MG TABLET PO PRN ×2 (03:28→10:30)
[2017-07-11 03:33] VITALS: BP 137/88
[2017-07-11 05:21] LABS: HEMATOCRIT 37.3 % (39.2-51.8); HEMOGLOBIN 12.6 g/dL (13.7-18.0); WHITE BLOOD COUNT 11.2 x10^3/uL (3.4-10)
[2017-07-11 06:04] LABS: ASPARTATE AMINO TRANSFERASE 67 U/L (15-37); BLOOD UREA NITROGEN 8 mg/dL (7-18)
[2017-07-11] MEDS: OMEPRAZOLE 20 MG CAPSULE.DR PO SCH (07:59)
[2017-07-11] MEDS: OXCARBAZEPINE 150 MG TABLET PO SCH (08:00)
[2017-07-11] MEDS: THIAMINE 100MG TABLET PO SCH (08:00)
[2017-07-11] MEDS: METOPROLOL TARTRATE 50 MG TABLET PO SCH (08:00)
[2017-07-11] MEDS: MULTIVITAMIN 1 TABLET PO SCH (08:01)
[2017-07-11] MEDS: FOLIC ACID 1 MG TABLET PO SCH (09:00)
[2017-07-11 10:32] VITALS: BP 108/72
[2017-07-11] MEDS ORDERED: RISP2TAB35 PO (13:13)
[2017-07-11] MEDS ORDERED: OXCA150T PO (13:13)
[2017-07-11] MEDS ORDERED: METO50TA82 PO (13:13)
[2017-07-11] MEDS ORDERED: OXYC5TAB3 PO (13:13)
[2017-07-11 14:53] VITALS: BP 118/74
== END 2017-07-11 16:15 | disposition home or self-care (01) | DRG 417 ==
LOC: ED 14:00 → EDIP 14:01 → ED 14:28 → 4NOR 16:28 → DCLOUNGE 07-11 15:21
PROVIDERS: ADMIT Hospitalist; ATTEND Hospitalist
PROC: 0FT44ZZ Resection of Gallbladder, Percutaneous Endoscopic Approach (ICD-10-PCS; principal; 2017-07-10 21:30)
DX: K80.12 Calculus of gallbladder with acute and chronic cholecystitis without obstruction (principal); E43 Unspecified severe protein-calorie malnutrition; N17.9 Acute kidney failure, unspecified; F10.231 Alcohol dependence with withdrawal delirium; R56.9 Unspecified convulsions; F23 Brief psychotic disorder; D64.9 Anemia, unspecified; D70.9 Neutropenia, unspecified; Z68.29 Body mass index [BMI] 29.0-29.9, adult; E83.42 Hypomagnesemia; E87.6 Hypokalemia; F31.9 Bipolar disorder, unspecified; F41.9 Anxiety disorder, unspecified; I10 Essential (primary) hypertension; J44.9 Chronic obstructive pulmonary disease, unspecified; K21.9 Gastro-esophageal reflux disease without esophagitis; Z72.0 Tobacco use; Z79.899 Other long term (current) drug therapy; Z81.1 Family history of alcohol abuse and dependence; Z81.8 Family history of other mental and behavioral disorders; Z90.49 Acquired absence of other specified parts of digestive tract
CPT/HCPCS: 36415; 70450; 76700; 80048; 80053; 80307; 82040; 82272; 83735; 84100; 85025; 87324; 88304; 93005; 93880; 96374; 96375; J1100; J1885; J2175; J2250; J2405; J2704; J2710; J3010; J3411; J3490; J7042; G0479; J1630; J2060; J3475; J3480; J7030; S0074

== ENCOUNTER 2017-08-24 12:02 | Inpatient (IN) | payer MEDICAID ==
[~2017-08-24] VITALS: Ht 180.3 cm; Wt 98.2 kg
[~2017-08-24 12:02] MED LIST changes: +METO50TA82 PO; +OXCA150T PO; +OXYC5TAB3 PO
[2017-08-24] MEDS ORDERED: METO-264 PO (12:16)
[2017-08-24] MEDS ORDERED: LORazepam 2 MG/ML, 1ML ONE ×3 (12:25→19:57)
[2017-08-24] MEDS ORDERED: MAALOX/HYOSCYAMINE/LIDOCAINE 45 ML BTL ONE (12:25)
[2017-08-24] MEDS ORDERED: ASPIRIN 81 MG TABLET CHEW ONE (12:25)
[2017-08-24] MEDS ORDERED: FAMOTIDINE 20 MG/2 ML ONE (12:26)
[2017-08-24] MEDS ORDERED: SODIUM CHLORIDE 0.9% 1,000ML IVBOLUS ONE ×3 (12:30→19:30)
[2017-08-24] MEDS ORDERED: SODIUM CHLORIDE FLUSH 10ML SYR IVF ONE (12:30)
[2017-08-24] MEDS ORDERED: MAALOX/HYOSCYAMINE/LIDOCAINE 45 ML BTL PO ONE (12:30)
[2017-08-24] MEDS ORDERED: LORazepam 2 MG/ML, 1ML IVPush ONE ×5 (12:30→20:00)
[2017-08-24] MEDS ORDERED: ASPIRIN 81 MG TABLET CHEW PO ONE (12:30)
[2017-08-24] MEDS ORDERED: FAMOTIDINE 20 MG/2 ML IVP ONE (12:30)
[2017-08-24 12:55] LABS: HEMOGLOBIN 14.1 g/dL (13.7-18.0); WHITE BLOOD COUNT 6.4 x10^3/uL (3.4-10)
[2017-08-24 13:06] LABS: BLOOD UREA NITROGEN 15 mg/dL (7-18)
[2017-08-24 13:12] LABS: ASPARTATE AMINO TRANSFERASE 44 U/L (15-37)
[2017-08-24 13:13] LABS: IS PT STATUS REG ER OR PRE ER? YES
[2017-08-24] MEDS ORDERED: ACETAMINOPHEN 500 MG TABLET PO ONE (13:30)
[2017-08-24] MEDS ORDERED: ACETAMINOPHEN 500 MG TABLET ONE (13:36)
[2017-08-24] MEDS ORDERED: CHLORDIAZEPOXIDE 25 MG CAPSULE PO ONE (21:00)
[2017-08-24] MEDS ORDERED: DIAZEPAM 5 MG/ML, 10ML VIAL IV ONE (23:30)
[2017-08-25] MEDS ORDERED: morphine SULFATE 10 MG/ML, 1ML IVPush PRN
[2017-08-25] MEDS ORDERED: DOCUSATE 100 MG CAPSULE PO PRN
[2017-08-25] MEDS ORDERED: LORazepam 1MG TABLET PO PRN ×2
[2017-08-25] MEDS ORDERED: POLYETHYLENE GLYCOL 17 GM PACKET PO PRN
[2017-08-25] MEDS ORDERED: ONDANSETRON 2MG/ML, 2ML IVPush PRN
[2017-08-25] MEDS ORDERED: LORazepam 2 MG/ML, 1ML IV PRN ×3
[2017-08-25] MEDS ORDERED: DIAZEPAM 5 MG/ML, 2ML IV ONE
[2017-08-25 01:49] VITALS: BP 144/89
[2017-08-25] MEDS: ENOXAPARIN 40 MG/0.4 ML SQ SCH (02:29)
[2017-08-25] MEDS: LORazepam 2 MG/ML, 1ML IV PRN ×3 (02:29→09:46)
[2017-08-25] MEDS: FAMOTIDINE 20 MG TABLET PO SCH ×3 (02:29→21:20)
[2017-08-25] MEDS: NS + 20MEQ KCL 1,000 ML IV SCH ×2 (02:30→13:11)
[2017-08-25 06:30] VITALS: BP 142/86
[2017-08-25 06:43] LABS: BLOOD UREA NITROGEN 15 mg/dL (7-18)
[2017-08-25] MEDS: OXCARBAZEPINE 150 MG TABLET PO SCH ×2 (09:46→21:20)
[2017-08-25] MEDS: METOPROLOL SUCCINATE 50 MG TAB.ER.24H PO SCH (09:46)
[2017-08-25] MEDS: MULTIVITAMIN 1 TABLET PO SCH (09:47)
[2017-08-25] MEDS: FOLIC ACID 1 MG TABLET PO SCH (09:47)
[2017-08-25] MEDS: THIAMINE 100MG TABLET PO SCH (09:47)
[2017-08-25] MEDS: CHLORDIAZEPOXIDE 25 MG CAPSULE PO SCH ×3 (10:42→21:20)
[2017-08-25 12:02] VITALS: BP 165/108
[2017-08-25] MEDS: LORazepam 1MG TABLET PO PRN ×2 (18:19→22:25)
[2017-08-25 18:20] VITALS: BP 158/99
[2017-08-26 01:09] VITALS: BP 134/91
[2017-08-26] MEDS: LORazepam 1MG TABLET PO PRN ×2 (03:22→22:21)
[2017-08-26] MEDS: ENOXAPARIN 40 MG/0.4 ML SQ SCH (03:22)
[2017-08-26 06:50] VITALS: BP 134/89
[2017-08-26] MEDS: OXCARBAZEPINE 150 MG TABLET PO SCH ×2 (08:59→20:36)
[2017-08-26] MEDS: MULTIVITAMIN 1 TABLET PO SCH (08:59)
[2017-08-26] MEDS: METOPROLOL SUCCINATE 50 MG TAB.ER.24H PO SCH (08:59)
[2017-08-26] MEDS: LORazepam 0.5MG TABLET PO PRN (08:59)
[2017-08-26] MEDS: FOLIC ACID 1 MG TABLET PO SCH (08:59)
[2017-08-26] MEDS: THIAMINE 100MG TABLET PO SCH (08:59)
[2017-08-26] MEDS: FAMOTIDINE 20 MG TABLET PO SCH ×2 (09:00→20:36)
[2017-08-26] MEDS: CHLORDIAZEPOXIDE 10 MG CAPSULE PO SCH ×3 (11:16→20:36)
[2017-08-26 12:40] VITALS: BP 153/101
[2017-08-26 19:23] VITALS: BP 138/97
[2017-08-27 01:25] VITALS: BP 143/100
[2017-08-27] MEDS: ENOXAPARIN 40 MG/0.4 ML SQ SCH (04:19)
[2017-08-27] MEDS: LORazepam 1MG TABLET PO PRN ×4 (05:41→20:39)
[2017-08-27 06:05] LABS: BLOOD UREA NITROGEN 12 mg/dL (7-18)
[2017-08-27] MEDS ORDERED: POTASSIUM CHLORIDE 20 MEQ TAB.ER.PRT PO ONE (07:00)
[2017-08-27] MEDS ORDERED: MAGNESIUM SULFATE PMX 2GM/50ML 50 ML IV ONE (07:00)
[2017-08-27 07:15] VITALS: BP 127/85
[2017-08-27] MEDS: OXCARBAZEPINE 150 MG TABLET PO SCH ×2 (07:47→20:39)
[2017-08-27] MEDS: THIAMINE 100MG TABLET PO SCH (07:47)
[2017-08-27] MEDS: MULTIVITAMIN 1 TABLET PO SCH (07:48)
[2017-08-27] MEDS: FOLIC ACID 1 MG TABLET PO SCH (07:48)
[2017-08-27] MEDS: FAMOTIDINE 20 MG TABLET PO SCH ×2 (07:48→20:39)
[2017-08-27] MEDS: METOPROLOL SUCCINATE 50 MG TAB.ER.24H PO SCH (07:48)
[2017-08-27] MEDS: OXYcodone IR 5MG TABLET PO PRN ×2 (11:19→17:43)
[2017-08-27 12:30] VITALS: BP 137/87
[2017-08-27 20:00] VITALS: BP 142/97
[2017-08-28] MEDS: OXYcodone IR 5MG TABLET PO PRN ×3 (00:24→22:14)
[2017-08-28 02:00] VITALS: BP 151/103
[2017-08-28] MEDS: LORazepam 1MG TABLET PO PRN ×2 (04:15→21:09)
[2017-08-28 05:30] LABS: BLOOD UREA NITROGEN 14 mg/dL (7-18)
[2017-08-28 07:23] VITALS: BP 139/93
[2017-08-28] MEDS: MULTIVITAMIN 1 TABLET PO SCH (08:37)
[2017-08-28] MEDS: FOLIC ACID 1 MG TABLET PO SCH (08:37)
[2017-08-28] MEDS: FAMOTIDINE 20 MG TABLET PO SCH ×2 (08:37→21:09)
[2017-08-28] MEDS: THIAMINE 100MG TABLET PO SCH (08:37)
[2017-08-28] MEDS: ENOXAPARIN 40 MG/0.4 ML SQ SCH (08:37)
[2017-08-28] MEDS: METOPROLOL SUCCINATE 50 MG TAB.ER.24H PO SCH (08:37)
[2017-08-28] MEDS: OXCARBAZEPINE 150 MG TABLET PO SCH ×2 (08:38→21:09)
[2017-08-28 12:15] VITALS: BP 111/72
[2017-08-28] MEDS: KETOROLAC 30 MG/1 ML IVPush PRN (17:39)
[2017-08-28 20:57] VITALS: BP 164/76
[2017-08-29] MEDS: LORazepam 0.5MG TABLET PO PRN ×2 (00:13→08:33)
[2017-08-29] MEDS: KETOROLAC 30 MG/1 ML IVPush PRN (00:13)
[2017-08-29 02:00] VITALS: BP 121/82
[2017-08-29 07:59] VITALS: BP 135/91
[2017-08-29] MEDS: METOPROLOL SUCCINATE 50 MG TAB.ER.24H PO SCH (08:33)
[2017-08-29] MEDS: FAMOTIDINE 20 MG TABLET PO SCH (08:33)
[2017-08-29] MEDS: ENOXAPARIN 40 MG/0.4 ML SQ SCH (08:33)
[2017-08-29] MEDS: MULTIVITAMIN 1 TABLET PO SCH (08:33)
[2017-08-29] MEDS: FOLIC ACID 1 MG TABLET PO SCH (08:33)
[2017-08-29] MEDS: THIAMINE 100MG TABLET PO SCH (08:33)
[2017-08-29] MEDS: OXCARBAZEPINE 150 MG TABLET PO SCH (08:34)
[2017-08-29] MEDS ORDERED: RISPERIDONE 1 MG TABLET PO ONE (12:00)
[2017-08-29 12:16] VITALS: BP 123/84
[2017-08-29] MEDS ORDERED: OXCA150T PO (12:17)
[2017-08-29] MEDS ORDERED: RISP2TAB35 PO (12:17)
[2017-08-29] MEDS ORDERED: RISPERIDONE 2 MG TABLET PO SCH (21:00)
== END 2017-08-29 15:05 | disposition home or self-care (01) | DRG 897 ==
LOC: ED 16:14 → SUATTDRO 23:44 → EDIP 23:49 → 4EST 08-25 01:07 → DCLOUNGE 08-29 14:42
PROVIDERS: ADMIT Family Medicine; ATTEND Family Medicine
DX: F10.231 Alcohol dependence with withdrawal delirium (principal); R45.851 Suicidal ideations; R56.9 Unspecified convulsions; F29 Unspecified psychosis not due to a substance or known physiological condition; F41.1 Generalized anxiety disorder; F31.9 Bipolar disorder, unspecified; G47.33 Obstructive sleep apnea (adult) (pediatric); I10 Essential (primary) hypertension; J44.9 Chronic obstructive pulmonary disease, unspecified; K21.9 Gastro-esophageal reflux disease without esophagitis; Z81.8 Family history of other mental and behavioral disorders; Z83.3 Family history of diabetes mellitus; Z91.19 Patient's noncompliance with other medical treatment and regimen; Z88.0 Allergy status to penicillin; Z88.2 Allergy status to sulfonamides
CPT/HCPCS: 36415; 71010; 80048; 80053; 83690; 83735; 83880; 84484; 85025; 85610; 93005; 96361; 96374; 96375; 96376; J1650; J1885; J3360; J3480; J2060; J3475; J7030; S0028

== ENCOUNTER 2020-04-17 09:33 | Inpatient (IN) | payer MEDICAID ==
[~2020-04-17] VITALS: Ht 180.3 cm; Wt 100.0 kg
[~2020-04-17 09:33] MED LIST changes: -IRBE300T16 PO; +IRBE300T8 PO; +LACT10SO24 PO; -LACT10SO5 PO; +METO-264 PO; -OXCA150T PO; +OXCA150T18 PO; -TRAZ50TA18 PO; +TRAZ50TA66 PO
[2020-04-17] MEDS ORDERED: LORazepam 2 MG/ML, 1ML ONE ×3 (09:49→15:53)
[2020-04-17] MEDS ORDERED: SODIUM CHLORIDE FLUSH 10ML SYR IVF ONE ×2 (10:00→10:30)
[2020-04-17] MEDS: LORazepam 2 MG/ML, 1ML IVPush PRN ×2 (10:06→14:02)
--- NOTE | 2020-04-17 10:10 | NUR ---
PT BIB [facility] to try to stop drinking. Last drink yesterday. Now haveing alcohol withdrawl symptoms.Pt in bed with cont monitor technician, spo2, bp q 30 min. at bedside
[2020-04-17] MEDS ORDERED: ONDANSETRON 2MG/ML, 2ML ONE (10:25)
[2020-04-17] MEDS ORDERED: FAMOTIDINE 20 MG/2 ML ONE (10:25)
[2020-04-17] MEDS ORDERED: FAMOTIDINE 20 MG/2 ML IV ONE (10:30)
[2020-04-17] MEDS ORDERED: ONDANSETRON 2MG/ML, 2ML IVPush ONE (10:30)
[2020-04-17] MEDS ORDERED: SODIUM CHLORIDE 0.9% 1,000ML IVBOLUS ONE (10:30)
--- NOTE | 2020-04-17 10:37 | NUR ---
pt put on 2l nc after ativan 1 mg. pt reports feeling much better. pt not shaking anymore, HR 108
[2020-04-17 10:44] LABS: BASOPHILS # (AUTO) 0.13 x10^3/uL (0-0.1); BASOPHILS % (AUTO) 1 % (0-1); EOSINOPHILS # (AUTO) 0.01 x10^3/uL (0-0.4); EOSINOPHILS % (AUTO) 0 % (1-7); LYMPHOCYTES # (AUTO) 2.68 x10^3/uL (1-3.4); LYMPHOCYTES % (AUTO) 24 % (22-44); MD NO; MEAN CORPUSCULAR HEMOGLOBIN 29.2 pg (27.5-34.5); MEAN CORPUSCULAR HGB CONC 33.1 g/dL (33.2-36.2); MEAN CORPUSCULAR VOLUME 88.2 fL (81-97); MEAN PLATELET VOLUME 9.2 fL (7.4-10.4); MONOCYTES # (AUTO) 0.73 x10^3/uL (0.2-0.8); MONOCYTES % (AUTO) 7 % (2-9); NEUTROPHILS # (AUTO) 7.65 x10^3/uL (1.8-6.8); NEUTROPHILS % (AUTO) 68 % (42-75); PLATELET COUNT 288 x10^3/uL (130-400); RED BLOOD COUNT 5.08 x10^6/uL (4.38-5.82); RED CELL DISTRIBUTION WIDTH 14.5 % (9.4-14.8)
[2020-04-17 10:54] LABS: INTERNATIONAL NORMALIZED RATIO 1.06 (0.93-1.1); PROTHROMBIN TIME 11.2 Seconds (9.6-11.5)
[2020-04-17 10:55] LABS: ALBUMIN 3.1 g/dL (3.4-5.0); ANION GAP 11 mmol/L (5-15); CALCIUM 7.8 mg/dL (8.5-10.1); CHLORIDE 109 mmol/L (98-107)
[2020-04-17 10:59] LABS: ALANINE AMINOTRANSFERASE 26 U/L (12-78); ALKALINE PHOSPHATASE 67 U/L (45-117); BILIRUBIN,TOTAL 0.6 mg/dL (0.2-1.0); CREATININE 1.03 mg/dL (0.7-1.3); TOTAL PROTEIN 5.6 g/dL (6.4-8.2)
--- NOTE | 2020-04-17 11:07 | NUR ---
RECEIVED REPORT FROM [facility]. ASSUMING CARE AT THIS TIME. PT AMBULATED TO RESTROOM WITH STEADY GAIT TO PROVIDE URINE SAMPLE. UA COLLECTED AND TAKEN TO LAB.
[2020-04-17 11:24] LABS: MICROSCOPIC AUTO
--- NOTE | 2020-04-17 11:41 | NUR ---
ALL RESULTS ARE BACK AT THIS TIME. CHART UP FOR RECHECK.
--- NOTE | 2020-04-17 12:30 | NUR ---
MD AT BEDSIDE TO UPDATE PT ON POC.
--- NOTE | 2020-04-17 12:48 | NUR ---
PT TO BE ADMITTED
--- NOTE | 2020-04-17 14:03 | NUR ---
PT C/O ANXIETY/SHAKEY FROM ETOH WD. PT MEDICATED WITH ATIVAN 1MG IV. PT RESTING ON GURNEY. [place].
--- NOTE | 2020-04-17 15:06 | NUR ---
PT TRANSFERRED TO HOSPITAL BED. PT AMBULATED TO RESTROOM WITH STEADY GAIT.
--- NOTE | 2020-04-17 15:17 | NUR ---
DIET TRAY ORDERED
[2020-04-17] MEDS ORDERED: PANTOPRAZOLE 20MG TABLET ONE (15:21)
[2020-04-17] MEDS ORDERED: HEPARIN 5,000 UNITS/ML, 1ML ONE (15:22)
[2020-04-17] MEDS ORDERED: LORazepam 2 MG/ML, 1ML IV PRN ×2 (15:30)
[2020-04-17] MEDS ORDERED: LORazepam 1MG TABLET PO PRN (15:30)
[2020-04-17] MEDS ORDERED: hydrALAzine 20 MG/ML, 1ML IVPush PRN (15:30)
[2020-04-17] MEDS: HEPARIN 5,000 UNITS/ML, 1ML SQ SCH ×2 (15:30→23:55)
[2020-04-17] MEDS ORDERED: SODIUM CHLORIDE 0.9% 1,000 ML IV SCH (15:30)
[2020-04-17] MEDS ORDERED: LABETALOL 5MG/ML, 20ML IVPush PRN (15:30)
[2020-04-17] MEDS: PANTOPRAZOLE 20MG TABLET PO SCH (15:48)
[2020-04-17] MEDS: LORazepam 2 MG/ML, 1ML IV PRN ×3 (15:58→22:19)
--- NOTE | 2020-04-17 16:00 | NUR ---
PT SCORED 14 ON CIWA ASSESSMENT. ATIVAN 2MG IV GIVEN PER DEC. REASSESS CIWA IN TWO HOURS.
--- NOTE | 2020-04-17 16:35 | NUR ---
PT SLEEPING ON HOSPITAL BED. RESP EVEN AND UNLABORED. PT ATE 100% OF MEAL. SEIZURE PRECAUTIONS IN PLACE.
--- NOTE | 2020-04-17 17:18 | NUR ---
PT SLEEPING ON GURNEY. RESP EVEN AND UNLABORED. OXYGEN ON RA AT 88%. PT PLACED ON 2L OXYGEN VIA NC.
[2020-04-17] MEDS: SODIUM CHLORIDE 0.9% 1,000 ML IV SCH (17:28)
--- NOTE | 2020-04-17 17:46 | NUR ---
REPORT GIVEN TO [facility].
[2020-04-17 18:02] VITALS: BP 145/69
[2020-04-17] MEDS: THIAMINE 100MG TABLET PO SCH (21:00)
[2020-04-17] MEDS: CALCIUM CARBONATE 500 MG TABLET PO SCH (21:46)
[2020-04-18 01:42] VITALS: BP 111/73
[2020-04-18] MEDS: SODIUM CHLORIDE 0.9% 1,000 ML IV SCH (04:16)
[2020-04-18] MEDS: PANTOPRAZOLE 20MG TABLET PO SCH ×2 (05:39→15:47)
[2020-04-18] MEDS: LORazepam 2 MG/ML, 1ML IV PRN (05:41)
[2020-04-18 06:40] LABS: BASOPHILS # (AUTO) 0.08 x10^3/uL (0-0.1); BASOPHILS % (AUTO) 1 % (0-1); EOSINOPHILS # (AUTO) 0.06 x10^3/uL (0-0.4); EOSINOPHILS % (AUTO) 1 % (1-7); LYMPHOCYTES % (AUTO) 33 % (22-44); MD NO; MEAN CORPUSCULAR HEMOGLOBIN 29.6 pg (27.5-34.5); MEAN CORPUSCULAR VOLUME 89.9 fL (81-97); MEAN PLATELET VOLUME 9.1 fL (7.4-10.4); MONOCYTES # (AUTO) 0.59 x10^3/uL (0.2-0.8); MONOCYTES % (AUTO) 10 % (2-9); NEUTROPHILS # (AUTO) 3.19 x10^3/uL (1.8-6.8); NEUTROPHILS % (AUTO) 55 % (42-75); PLATELET COUNT 200 x10^3/uL (130-400); RED BLOOD COUNT 4.56 x10^6/uL (4.38-5.82); RED CELL DISTRIBUTION WIDTH 14.1 % (9.4-14.8)
[2020-04-18 06:48] LABS: ALBUMIN 2.6 g/dL (3.4-5.0); ANION GAP 9 mmol/L (5-15); CALCIUM 7.9 mg/dL (8.5-10.1); CHLORIDE 110 mmol/L (98-107)
[2020-04-18 06:52] LABS: ALANINE AMINOTRANSFERASE 24 U/L (12-78); ALKALINE PHOSPHATASE 58 U/L (45-117); BILIRUBIN,TOTAL 0.8 mg/dL (0.2-1.0); CREATININE 0.82 mg/dL (0.7-1.3)
[2020-04-18 06:59] VITALS: BP 141/82
[2020-04-18] MEDS: MULTIVITAMIN 1 TABLET PO SCH (08:13)
[2020-04-18] MEDS: LORazepam 1MG TABLET PO PRN ×4 (08:13→23:45)
[2020-04-18] MEDS: FOLIC ACID 1 MG TABLET PO SCH (08:14)
[2020-04-18] MEDS: CALCIUM CARBONATE 500 MG TABLET PO SCH ×2 (08:14→20:13)
[2020-04-18] MEDS: HEPARIN 5,000 UNITS/ML, 1ML SQ SCH ×3 (08:14→23:45)
[2020-04-18] MEDS: THIAMINE 100MG TABLET PO SCH ×2 (08:14→21:00)
[2020-04-18 13:13] VITALS: BP 128/80
[2020-04-18] MEDS: CHLORDIAZEPOXIDE 25 MG CAPSULE PO SCH ×3 (13:38→20:13)
[2020-04-18] MEDS: GABAPENTIN 400 MG CAPSULE PO SCH ×2 (15:47→20:13)
[2020-04-18] MEDS ORDERED: SODIUM CHLORIDE 0.9% 1,000 ML IV SCH (17:28)
[2020-04-18 19:10] VITALS: BP 136/77
[2020-04-19 00:58] VITALS: BP 123/73
[2020-04-19] MEDS: LORazepam 1MG TABLET PO PRN ×3 (05:40→15:45)
[2020-04-19] MEDS: PANTOPRAZOLE 20MG TABLET PO SCH ×2 (05:40→15:45)
[2020-04-19 08:25] VITALS: BP 173/81
[2020-04-19] MEDS: CHLORDIAZEPOXIDE 25 MG CAPSULE PO SCH ×3 (08:41→20:19)
[2020-04-19] MEDS: CALCIUM CARBONATE 500 MG TABLET PO SCH ×2 (08:41→20:19)
[2020-04-19] MEDS: MULTIVITAMIN 1 TABLET PO SCH (08:42)
[2020-04-19] MEDS: FOLIC ACID 1 MG TABLET PO SCH (08:42)
[2020-04-19] MEDS: ACETAMINOPHEN 325 MG TABLET PO PRN (08:42)
[2020-04-19] MEDS: HEPARIN 5,000 UNITS/ML, 1ML SQ SCH ×2 (08:42→15:45)
[2020-04-19] MEDS: GABAPENTIN 400 MG CAPSULE PO SCH ×3 (08:42→20:19)
[2020-04-19] MEDS: THIAMINE 100MG TABLET PO SCH ×2 (08:42→20:19)
[2020-04-19 11:02] VITALS: BP 152/96
[2020-04-19 13:07] VITALS: BP 149/80
[2020-04-19 19:51] VITALS: BP 143/83
[2020-04-19] MEDS: LORazepam 2 MG/ML, 1ML IV PRN (21:25)
[2020-04-20] MEDS: HEPARIN 5,000 UNITS/ML, 1ML SQ SCH ×3 (00:16→16:59)
[2020-04-20 00:56] VITALS: BP 133/85
[2020-04-20] MEDS: PANTOPRAZOLE 20MG TABLET PO SCH ×2 (05:50→16:59)
[2020-04-20] MEDS: PROPRANOLOL 20 MG TABLET PO SCH (05:51)
[2020-04-20 07:32] VITALS: BP 126/89
[2020-04-20] MEDS: LORazepam 1MG TABLET PO PRN ×2 (08:16→16:58)
[2020-04-20] MEDS: GABAPENTIN 400 MG CAPSULE PO SCH ×3 (08:16→20:49)
[2020-04-20] MEDS: MULTIVITAMIN 1 TABLET PO SCH (08:16)
[2020-04-20] MEDS: FOLIC ACID 1 MG TABLET PO SCH (08:17)
[2020-04-20] MEDS: ACETAMINOPHEN 325 MG TABLET PO PRN ×2 (08:17→16:58)
[2020-04-20] MEDS: THIAMINE 100MG TABLET PO SCH ×2 (08:17→20:49)
[2020-04-20] MEDS: CHLORDIAZEPOXIDE 25 MG CAPSULE PO SCH ×3 (08:17→20:49)
[2020-04-20] MEDS: CALCIUM CARBONATE 500 MG TABLET PO SCH ×2 (08:17→20:49)
[2020-04-20 13:44] VITALS: BP 122/78
[2020-04-20 19:50] VITALS: BP 139/99
[2020-04-20] MEDS: LORazepam 2 MG/ML, 1ML IV PRN (22:59)
[2020-04-21] MEDS: HEPARIN 5,000 UNITS/ML, 1ML SQ SCH ×3 (00:49→17:10)
[2020-04-21] MEDS: LORazepam 2 MG/ML, 1ML IV PRN ×2 (00:49→02:34)
[2020-04-21 01:35] VITALS: BP 164/120
[2020-04-21] MEDS: ONDANSETRON 2MG/ML, 2ML IVPush PRN ×2 (01:42→20:31)
[2020-04-21 02:27] VITALS: BP 140/96
[2020-04-21] MEDS: PROPRANOLOL 20 MG TABLET PO SCH (05:40)
[2020-04-21] MEDS: PANTOPRAZOLE 20MG TABLET PO SCH ×2 (05:45→17:09)
[2020-04-21 07:55] VITALS: BP 129/90
[2020-04-21] MEDS: MULTIVITAMIN 1 TABLET PO SCH (08:37)
[2020-04-21] MEDS: FOLIC ACID 1 MG TABLET PO SCH (08:37)
[2020-04-21] MEDS: CHLORDIAZEPOXIDE 25 MG CAPSULE PO SCH ×3 (08:37→21:51)
[2020-04-21] MEDS: THIAMINE 100MG TABLET PO SCH ×2 (08:37→21:51)
[2020-04-21] MEDS: LORazepam 1MG TABLET PO PRN ×3 (08:38→14:23)
[2020-04-21] MEDS: GABAPENTIN 400 MG CAPSULE PO SCH ×3 (08:38→21:51)
[2020-04-21] MEDS ORDERED: TRAZ-175 PO (10:00)
[2020-04-21] MEDS ORDERED: GABA-827 PO (10:00)
[2020-04-21] MEDS ORDERED: PROP20TA PO (10:00)
[2020-04-21] MEDS ORDERED: ESCI20TA PO (10:00)
[2020-04-21] MEDS ORDERED: ESCITALOPRAM OXALATE PO SCH (10:30)
[2020-04-21] MEDS: ESCITALOPRAM 10MG TABLET PO SCH (10:49)
[2020-04-21 14:10] VITALS: BP 133/89
[2020-04-21 20:26] VITALS: BP 144/102
[2020-04-21] MEDS: LORazepam 0.5MG TABLET PO PRN (20:31)
[2020-04-21] MEDS: TRAZODONE 100MG TABLET PO SCH (21:51)
[2020-04-22] MEDS: LORazepam 1MG TABLET PO PRN (00:36)
[2020-04-22] MEDS: HEPARIN 5,000 UNITS/ML, 1ML SQ SCH ×3 (00:37→16:29)
[2020-04-22 01:08] VITALS: BP 111/67
[2020-04-22] MEDS: PROPRANOLOL 20 MG TABLET PO SCH (05:24)
[2020-04-22] MEDS: PANTOPRAZOLE 20MG TABLET PO SCH ×2 (05:24→16:29)
[2020-04-22 08:03] VITALS: BP 116/82
[2020-04-22] MEDS: GABAPENTIN 400 MG CAPSULE PO SCH ×3 (10:42→20:09)
[2020-04-22] MEDS: FOLIC ACID 1 MG TABLET PO SCH (10:42)
[2020-04-22] MEDS: LORazepam 0.5MG TABLET PO PRN ×3 (10:42→20:09)
[2020-04-22] MEDS: ESCITALOPRAM 10MG TABLET PO SCH (10:42)
[2020-04-22] MEDS: MULTIVITAMIN 1 TABLET PO SCH (10:42)
[2020-04-22] MEDS: THIAMINE 100MG TABLET PO SCH ×2 (10:42→20:09)
[2020-04-22 14:22] VITALS: BP 112/77
[2020-04-22] MEDS: ACETAMINOPHEN 325 MG TABLET PO PRN ×2 (14:45→20:09)
[2020-04-22] MEDS: ONDANSETRON 2MG/ML, 2ML IVPush PRN ×2 (14:45→20:59)
[2020-04-22 19:59] VITALS: BP 123/77
[2020-04-22] MEDS: TRAZODONE 100MG TABLET PO SCH (20:59)
[2020-04-23] VITALS (7 sets, daily range): BP systolic 114–154; BP diastolic 71–95
[2020-04-23] MEDS: HEPARIN 5,000 UNITS/ML, 1ML SQ SCH ×3 (00:32→15:40)
[2020-04-23] MEDS: PANTOPRAZOLE 20MG TABLET PO SCH ×2 (06:13→15:40)
[2020-04-23] MEDS: PROPRANOLOL 20 MG TABLET PO SCH (06:13)
[2020-04-23 07:10] LABS: ALANINE AMINOTRANSFERASE 81 U/L (12-78); ALBUMIN 2.7 g/dL (3.4-5.0); ANION GAP 4 mmol/L (5-15); CALCIUM 8.3 mg/dL (8.5-10.1); CHLORIDE 111 mmol/L (98-107)
[2020-04-23 07:13] LABS: ALKALINE PHOSPHATASE 74 U/L (45-117); BILIRUBIN,TOTAL 0.1 mg/dL (0.2-1.0); CREATININE 1.01 mg/dL (0.7-1.3)
[2020-04-23] MEDS: ESCITALOPRAM 10MG TABLET PO SCH (08:08)
[2020-04-23] MEDS: FOLIC ACID 1 MG TABLET PO SCH (08:08)
[2020-04-23] MEDS: THIAMINE 100MG TABLET PO SCH ×2 (08:08→20:16)
[2020-04-23] MEDS: MULTIVITAMIN 1 TABLET PO SCH (08:08)
[2020-04-23] MEDS: GABAPENTIN 400 MG CAPSULE PO SCH ×3 (08:08→20:16)
[2020-04-23] MEDS: LORazepam 1MG TABLET PO PRN (20:22)
[2020-04-23] MEDS: TRAZODONE 100MG TABLET PO SCH (23:19)
[2020-04-24] MEDS: HEPARIN 5,000 UNITS/ML, 1ML SQ SCH ×3 (00:29→16:12)
[2020-04-24] MEDS: LORazepam 1MG TABLET PO PRN ×3 (00:29→21:07)
[2020-04-24] MEDS: ACETAMINOPHEN 325 MG TABLET PO PRN ×3 (00:30→16:13)
[2020-04-24 01:19] VITALS: BP 142/87
[2020-04-24 05:54] VITALS: BP 105/72
[2020-04-24] MEDS: PROPRANOLOL 20 MG TABLET PO SCH (05:55)
[2020-04-24] MEDS: PANTOPRAZOLE 20MG TABLET PO SCH ×2 (05:55→16:13)
[2020-04-24 07:13] VITALS: BP 99/67
[2020-04-24] MEDS: ESCITALOPRAM 10MG TABLET PO SCH (08:35)
[2020-04-24] MEDS: FOLIC ACID 1 MG TABLET PO SCH (08:36)
[2020-04-24] MEDS: GABAPENTIN 400 MG CAPSULE PO SCH ×3 (08:36→21:06)
[2020-04-24] MEDS: THIAMINE 100MG TABLET PO SCH ×2 (08:36→21:06)
[2020-04-24] MEDS: MULTIVITAMIN 1 TABLET PO SCH (08:37)
[2020-04-24] MEDS: MECLIZINE 25 MG TABLET PO PRN (12:22)
[2020-04-24] MEDS: LORazepam 0.5MG TABLET PO PRN ×2 (12:22→16:11)
[2020-04-24 12:30] VITALS: BP 130/86
[2020-04-24 19:47] VITALS: BP 115/80
[2020-04-24] MEDS: TRAZODONE 100MG TABLET PO SCH (21:06)
[2020-04-25] MEDS: HEPARIN 5,000 UNITS/ML, 1ML SQ SCH ×3 (00:59→16:17)
[2020-04-25] MEDS: LORazepam 0.5MG TABLET PO PRN (00:59)
[2020-04-25 01:26] VITALS: BP 117/78
[2020-04-25] MEDS: LORazepam 1MG TABLET PO PRN ×3 (06:04→19:50)
[2020-04-25] MEDS: PANTOPRAZOLE 20MG TABLET PO SCH ×2 (06:04→16:17)
[2020-04-25] MEDS: PROPRANOLOL 20 MG TABLET PO SCH (06:05)
[2020-04-25] MEDS: MECLIZINE 25 MG TABLET PO PRN ×2 (06:13→12:26)
[2020-04-25 08:00] VITALS: BP 110/76
[2020-04-25] MEDS: FOLIC ACID 1 MG TABLET PO SCH (08:32)
[2020-04-25] MEDS: THIAMINE 100MG TABLET PO SCH ×2 (08:32→19:51)
[2020-04-25] MEDS: ESCITALOPRAM 10MG TABLET PO SCH (08:32)
[2020-04-25] MEDS: GABAPENTIN 400 MG CAPSULE PO SCH ×3 (08:32→19:52)
[2020-04-25] MEDS: MULTIVITAMIN 1 TABLET PO SCH (08:32)
[2020-04-25 12:06] VITALS: BP 99/63
[2020-04-25] MEDS: ONDANSETRON 2MG/ML, 2ML IVPush PRN (16:18)
[2020-04-25 19:30] VITALS: BP 109/68
[2020-04-25] MEDS: ACETAMINOPHEN 325 MG TABLET PO PRN (19:50)
[2020-04-25] MEDS: TRAZODONE 100MG TABLET PO SCH (19:51)
[2020-04-26] MEDS: HEPARIN 5,000 UNITS/ML, 1ML SQ SCH ×3 (00:33→15:25)
[2020-04-26 02:38] VITALS: BP 98/59
[2020-04-26 05:07] VITALS: BP 108/71
[2020-04-26] MEDS: PROPRANOLOL 20 MG TABLET PO SCH (05:09)
[2020-04-26] MEDS: PANTOPRAZOLE 20MG TABLET PO SCH ×2 (05:09→15:24)
[2020-04-26 07:40] VITALS: BP 104/72
[2020-04-26] MEDS: LORazepam 1MG TABLET PO PRN ×2 (08:15→20:12)
[2020-04-26] MEDS: MULTIVITAMIN 1 TABLET PO SCH (08:15)
[2020-04-26] MEDS: GABAPENTIN 400 MG CAPSULE PO SCH ×3 (08:15→20:12)
[2020-04-26] MEDS: FOLIC ACID 1 MG TABLET PO SCH (08:15)
[2020-04-26] MEDS: THIAMINE 100MG TABLET PO SCH ×2 (08:15→20:12)
[2020-04-26] MEDS: ESCITALOPRAM 10MG TABLET PO SCH (08:15)
[2020-04-26] MEDS: MECLIZINE 25 MG TABLET PO PRN ×2 (10:05→15:24)
[2020-04-26] MEDS: ACETAMINOPHEN 325 MG TABLET PO PRN ×3 (10:06→20:12)
[2020-04-26 14:42] VITALS: BP 133/88
[2020-04-26] MEDS ORDERED: DIPHENHYDRAMINE 12.5MG/5ML, 10ML UDC PO PRN (16:00)
[2020-04-26 20:01] VITALS: BP 139/86
[2020-04-27] MEDS: TRAZODONE 100MG TABLET PO SCH ×2 (00:09→23:59)
[2020-04-27] MEDS: HEPARIN 5,000 UNITS/ML, 1ML SQ SCH ×4 (00:10→23:59)
[2020-04-27] MEDS: LORazepam 1MG TABLET PO PRN (00:15)
[2020-04-27] MEDS: ACETAMINOPHEN 325 MG TABLET PO PRN ×3 (00:15→19:03)
[2020-04-27 01:29] VITALS: BP 126/82
[2020-04-27] MEDS: PROPRANOLOL 20 MG TABLET PO SCH (05:32)
[2020-04-27] MEDS: PANTOPRAZOLE 20MG TABLET PO SCH ×2 (05:32→17:59)
[2020-04-27] MEDS: ONDANSETRON 2MG/ML, 2ML IVPush PRN ×2 (05:51→20:09)
[2020-04-27 07:34] VITALS: BP 113/76
[2020-04-27] MEDS: MECLIZINE 25 MG TABLET PO PRN ×2 (08:50→23:59)
[2020-04-27] MEDS: FOLIC ACID 1 MG TABLET PO SCH (11:04)
[2020-04-27] MEDS: MULTIVITAMIN 1 TABLET PO SCH (11:04)
[2020-04-27] MEDS: GABAPENTIN 400 MG CAPSULE PO SCH ×3 (11:04→20:01)
[2020-04-27] MEDS: ESCITALOPRAM 10MG TABLET PO SCH (11:04)
[2020-04-27] MEDS: THIAMINE 100MG TABLET PO SCH ×2 (11:04→20:01)
[2020-04-27 13:16] VITALS: BP 156/80
[2020-04-27] MEDS ORDERED: LORazepam 0.5MG TABLET PO PRN (16:30)
[2020-04-27 19:32] VITALS: BP 131/83
[2020-04-28] VITALS: BP 131/93
[2020-04-28] MEDS: ACETAMINOPHEN 325 MG TABLET PO PRN ×2 (00:06→07:12)
[2020-04-28] MEDS: PANTOPRAZOLE 20MG TABLET PO SCH ×2 (05:39→15:26)
[2020-04-28] MEDS: PROPRANOLOL 20 MG TABLET PO SCH (05:40)
[2020-04-28 07:00] VITALS: BP 103/70
[2020-04-28] MEDS: ONDANSETRON 2MG/ML, 2ML IVPush PRN (07:13)
[2020-04-28] MEDS: ESCITALOPRAM 10MG TABLET PO SCH (08:20)
[2020-04-28] MEDS: FOLIC ACID 1 MG TABLET PO SCH (08:20)
[2020-04-28] MEDS: MULTIVITAMIN 1 TABLET PO SCH (08:20)
[2020-04-28] MEDS: MECLIZINE 25 MG TABLET PO PRN (08:20)
[2020-04-28] MEDS: THIAMINE 100MG TABLET PO SCH ×2 (08:20→20:44)
[2020-04-28] MEDS: GABAPENTIN 400 MG CAPSULE PO SCH ×3 (08:20→20:43)
[2020-04-28] MEDS: HEPARIN 5,000 UNITS/ML, 1ML SQ SCH ×2 (11:13→20:43)
[2020-04-28] MEDS ORDERED: GADOTERATE 10 MMOL/20 ML SYR ONE (11:57)
[2020-04-28 13:22] VITALS: BP 109/71
[2020-04-28] MEDS: MECLIZINE 25 MG TABLET PO SCH ×2 (15:26→20:43)
[2020-04-28 19:48] VITALS: BP 118/73
[2020-04-28] MEDS: AMITRIPTYLINE 10 MG TABLET PO SCH (20:44)
[2020-04-28] MEDS: TRAZODONE 100MG TABLET PO SCH (23:30)
[2020-04-29 01:26] VITALS: BP 104/64
[2020-04-29] MEDS: HEPARIN 5,000 UNITS/ML, 1ML SQ SCH ×4 (03:01→21:17)
[2020-04-29] MEDS: PROPRANOLOL 20 MG TABLET PO SCH (06:15)
[2020-04-29] MEDS: PANTOPRAZOLE 20MG TABLET PO SCH ×2 (06:15→17:20)
[2020-04-29 07:17] VITALS: BP 124/78
[2020-04-29] MEDS: MECLIZINE 25 MG TABLET PO SCH ×3 (09:30→20:19)
[2020-04-29] MEDS: ESCITALOPRAM 10MG TABLET PO SCH (09:30)
[2020-04-29] MEDS: THIAMINE 100MG TABLET PO SCH ×2 (09:30→20:19)
[2020-04-29] MEDS: FOLIC ACID 1 MG TABLET PO SCH (09:30)
[2020-04-29] MEDS: MULTIVITAMIN 1 TABLET PO SCH (09:30)
[2020-04-29] MEDS: GABAPENTIN 400 MG CAPSULE PO SCH ×3 (09:30→20:19)
[2020-04-29] MEDS: ACETAMINOPHEN 325 MG TABLET PO PRN (09:44)
[2020-04-29] MEDS ORDERED: ONDA4TAB7 PO (10:52)
[2020-04-29] MEDS ORDERED: MECL-101 PO (10:52)
[2020-04-29] MEDS ORDERED: THIA100T67 PO (10:52)
[2020-04-29] MEDS ORDERED: AMIT10TA PO (10:52)
[2020-04-29] MEDS ORDERED: ACET325T26 PO (10:52)
[2020-04-29] MEDS ORDERED: PANT20TA3 PO (10:52)
[2020-04-29 14:00] VITALS: BP 136/94
[2020-04-29 18:46] VITALS: BP 122/80
[2020-04-29] MEDS: AMITRIPTYLINE 10 MG TABLET PO SCH (20:19)
[2020-04-29] MEDS: TRAZODONE 100MG TABLET PO SCH (20:19)
[2020-04-30] MEDS: ACETAMINOPHEN 325 MG TABLET PO PRN ×2 (00:05→10:25)
[2020-04-30 01:10] VITALS: BP 103/62
[2020-04-30] MEDS: PROPRANOLOL 20 MG TABLET PO SCH (06:32)
[2020-04-30] MEDS: PANTOPRAZOLE 20MG TABLET PO SCH (06:32)
[2020-04-30 09:49] VITALS: BP 127/87
[2020-04-30] MEDS: MECLIZINE 25 MG TABLET PO SCH (10:24)
[2020-04-30] MEDS: MULTIVITAMIN 1 TABLET PO SCH (10:24)
[2020-04-30] MEDS: FOLIC ACID 1 MG TABLET PO SCH (10:24)
[2020-04-30] MEDS: ESCITALOPRAM 10MG TABLET PO SCH (10:24)
[2020-04-30] MEDS: THIAMINE 100MG TABLET PO SCH (10:24)
[2020-04-30] MEDS: GABAPENTIN 400 MG CAPSULE PO SCH (10:25)
[2020-04-30 10:37] VITALS: BP 119/88
== END 2020-04-30 11:45 | disposition home or self-care (01) | DRG 897 ==
LOC: ED 11:08 → EDIP 12:46 → 4WST 18:06 → DCLOUNGE 04-30 11:40
PROVIDERS: ADMIT Family Medicine; ATTEND Internal Medicine
DX: F10.239 Alcohol dependence with withdrawal, unspecified (principal); E87.2 Acidosis; D72.829 Elevated white blood cell count, unspecified; F10.24 Alcohol dependence with alcohol-induced mood disorder; E83.51 Hypocalcemia; F12.90 Cannabis use, unspecified, uncomplicated; F32.9 Major depressive disorder, single episode, unspecified; F41.9 Anxiety disorder, unspecified; G25.0 Essential tremor; G44.52 New daily persistent headache (NDPH); I10 Essential (primary) hypertension; M54.30 Sciatica, unspecified side; W18.39XA Other fall on same level, initial encounter; H81.10 Benign paroxysmal vertigo, unspecified ear; R94.5 Abnormal results of liver function studies; Y93.89 Activity, other specified; Y92.89 Other specified places as the place of occurrence of the external cause; Y99.8 Other external cause status; Z81.8 Family history of other mental and behavioral disorders; Z82.49 Family history of ischemic heart disease and other diseases of the circulatory system; Z87.891 Personal history of nicotine dependence; Z88.0 Allergy status to penicillin; Z88.2 Allergy status to sulfonamides
CPT/HCPCS: 36415; 96374; 96375; 99285; J3490; 70450; 70553; 80053; 80307; 81001; 82607; 83690; 83735; 84100; 85025; 85610; 86592; 93005; 93306; 93356; 93880; G0378; J1644; J2405; A9575; J0360; J2060; J7030